=== PATIENT | female | born 1980 | race Caucasian/White ===

== ENCOUNTER 2017-01-15 12:30 | Emergency (ER) | payer BC ==
[~2017-01-15] VITALS: Ht 172.7 cm; Wt 90.0 kg
[2017-01-15] MEDS ORDERED: CLINDAMYCIN300 M1 PO (13:09)
[2017-01-15 13:21] VITALS: BP 130/91
[2017-01-15] MEDS ORDERED: TOBRADEX 2.5 ML OD (13:43)
== END 2017-01-15 13:45 | disposition home or self-care (01) | DRG 125 ==
LOC: ED 12:30
DX: H00.012 Hordeolum externum right lower eyelid (principal); F17.210 Nicotine dependence, cigarettes, uncomplicated; K08.89 Other specified disorders of teeth and supporting structures; M19.90 Unspecified osteoarthritis, unspecified site; M79.7 Fibromyalgia; J45.909 Unspecified asthma, uncomplicated; R73.03 Prediabetes

== ENCOUNTER 2017-08-18 12:24 | Emergency (ER) | payer OTHER ==
[~2017-08-18] VITALS: Ht 172.7 cm; Wt 93.0 kg
[~2017-08-18 12:24] MED LIST: CLINDAMYCIN300 M1 PO; TOBRADEX 2.5 ML OD
[2017-08-18] MEDS ORDERED: BACTRIM DS1 TAB PO (13:37)
[2017-08-18 13:45] VITALS: BP 127/88
== END 2017-08-18 13:45 | disposition home or self-care (01) | DRG 125 ==
LOC: ED 12:24
DX: H00.022 Hordeolum internum right lower eyelid (principal)